=== PATIENT | male | born 1995 | race Caucasian/White ===

== ENCOUNTER → 2024-05-29 | Emergency (ER) | payer MEDICARE, MEDICAID ==
[~2024-05-29] VITALS: Ht 180.3 cm; Wt 90.0 kg
[~2024-05-29] MED LIST: LORAZEPAM 2MG/ML INJ IV NR; LORAZEPAM 2MG/ML INJ IV STA
[2024-05-29 22:03] VITALS: O2SAT 97
[2024-05-29 22:45] LABS: EOSINOPHILS % 3.2 % (0.0-5.0); HEMATOCRIT. 41.2 % (42.0-52.0); HEMOGLOBIN. 14.4 g/dL (14.0-18.0); LYMPHOCYTES % 32.2 % (20.0-50.0); MEAN CORPUSCULAR HEMOGLOBIN 31.2 pg (28.0-32.0); MEAN CORPUSCULAR HGB CONC 34.9 g/dL (31.0-37.0); MEAN CORPUSCULAR VOLUME 89.3 fL (80.0-94.0); MEAN PLATELET VOLUME 10.3 fl (7.4-10.4); NEUTROPHILS % 57.6 % (40.0-76.0); PLATELET 229 x1000/uL (130-400); RED BLOOD CELL COUNT 4.62 mill/uL (4.7-6.1); RED CELL DISTRIBUTION WIDTH 14.1 % (11.6-14.6); WHITE BLOOD COUNT 12.2 x1000/uL (4.5-11.0)
[2024-05-29 23:02] LABS: CARBON DIOXIDE 25 mEq/L (21-32); CHLORIDE 102 mEq/L (98-107); POTASSIUM 3.6 mEq/L (3.5-5.1); SODIUM 134 mEq/L (136-145)
[2024-05-29 23:03] LABS: CALCIUM 9.6 mg/dL (8.7-10.4)
[2024-05-29 23:07] LABS: CREATININE 0.8 mg/dL (0.6-1.3); GLUCOSE 311 mg/dL (70-105)
[2024-05-29 23:08] LABS: UREA NITROGEN BLOOD 11 mg/dL (9-23)
[2024-05-29 23:15] LABS: ETHANOL BLOOD < 10 mg/dL (<10); TROPONIN I HIGH SENSITIVITY < 4 ng/L (3.0-53)
[2024-05-29] MEDS: LORAZEPAM 2MG/ML INJ IM NR (23:26)
[2024-05-30 01:37] LABS: *AMPHETAMINES SCREEN URINE NEGATIVE (NEGATIVE); *BARBITURATES SCREEN URINE NEGATIVE (NEGATIVE); *BENZODIAZEPINES SCREEN URINE NEGATIVE (NEGATIVE); *COCAINE SCREEN URINE NEGATIVE (NEGATIVE); CANNABINOID URINE SCREEN NEGATIVE (NEGATIVE); METHADONE URINE SCREEN NEGATIVE (NEGATIVE); OPIATES URINE SCREEN NEGATIVE (NEGATIVE); PHENCYCLIDINE URINE SCREEN NEGATIVE (NEGATIVE)
[2024-05-30 01:38] LABS: ECSTASY MDMA SCREEN URINE NEGATIVE (NEGATIVE)
[2024-05-30 02:58] LABS: CLARITY URINE CLEAR (CLEAR); COLOR URINE YELLOW (YELLOW)
[2024-05-30 02:59] LABS: GLUCOSE URINE 3+ (NEGATIVE); KETONES URINE NEGATIVE (NEGATIVE); LEUKOCYTE ESTERASE URINE NEGATIVE (NEGATIVE); NITRITE URINE NEGATIVE (NEGATIVE); OCCULT BLOOD URINE NEGATIVE (NEGATIVE); PROTEIN URINE NEGATIVE (NEGATIVE); UROBILINOGEN URINE <1 E.U./dL (0.2-1.0)
[2024-05-30] MEDS: OLANZAPINE 5MG TABLET PO SCH (20:00)
[2024-05-30] MEDS: OLANZAPINE 10 MG/VIAL IM ONE (20:20)
[2024-05-30] MEDS: LORAZEPAM 2MG/ML INJ IM ONE (20:20)
[2024-05-30 21:25] VITALS: BP 112/76; PULSE 76; RESP 14; TEMP 36.72516; O2SAT 99
== END ==
LOC: EDBD 21:44 → ER 21:44
DX: R07.89 Other chest pain (principal); R00.2 Palpitations; R00.0 Tachycardia, unspecified; Z20.822 Contact with and (suspected) exposure to COVID-19
CPT/HCPCS: 80305; 80048; 81003; 80307; 80329; 80320; 82962; 85025; 84484; 36415; 71045; 93005; 96372; 99285; 87426; J2060; J3490; G0480